=== PATIENT | female | born 1990 ===

== ENCOUNTER 2020-09-26 21:37 | Emergency (ER) | payer MEDICAID ==
--- NOTE | 2020-09-26 21:45 | EDM.PDOCBH ---
ED HPI GENERAL MEDICAL PROBLEM - General Chief Complaint: Drug or Alcohol Abuse Stated Complaint: [facility] Time Seen by Provider: 09/26/20 21:37 Source of Information: Reports: EMS History Limitations: Reports: Altered Mental Status, Intoxication - History of Present Illness INITIAL COMMENTS - FREE TEXT/NARRATIVE: 30-year-old female that apparently was at a local detox center and left AMA, was dropped off at a hotel and tonight was wandering the halls extremely intoxicated falling down. EMS was called, they found a large bottle of vodka partially consumed. She arouses to voice but is unable to speak, vitals are otherwise stable. - Related Data Allergies Allergy/AdvReac Type Severity Reaction Status Date / Time amoxicillin Allergy Cannot Verified 09/26/20 23:57 Remember Penicillins Allergy Cannot Verified 09/26/20 23:57 Remember Sulfa (Sulfonamide Allergy Cannot Verified 09/26/20 23:57 Antibiotics) Remember Home Meds: Home Meds . [Unable to Verify Home Med List] 09/26/20 [History] ED ROS GENERAL - Review of Systems Review Of Systems: See Below Reason Not Obtained: Patient is unable to give a review of systems, intoxicated ED EXAM, BEHAVIORAL HEALTH - Physical Exam Exam: See Below Exam Limited By: Altered Mental Status General Appearance: Lethargic Eye Exam: Bilateral Eye: Other (Slight disconjugate gaze initially) Head: Atraumatic Neck: Non-Tender Respiratory/Chest: Lungs Clear Cardiovascular: Regular Rate, Rhythm Neurological: Inattentive Psychiatric: Other (Initially very intoxicated) Skin Exam: Warm, Dry COURSE, BEHAVIORAL HEALTH COMP - Course Vital Signs: Last Vital Signs Temp 97.8 F 09/26/20 21:50 Pulse 67 09/26/20 22:03 Resp 16 09/26/20 22:03 BP 128/86 09/26/20 22:03 Pulse Ox 99 09/26/20 22:03 Orders, Labs, Meds: Laboratory Tests 09/26/20 09/26/20 09/26/20 Range/Units 21:55 21:55 21:55 WBC 4.7 (4.5-11.0) K/uL RBC 4.40 (3.30-5.50) M/uL Hgb 14.0 (12.0-15.0) g/dL Hct 42.0 (36.0-48.0) % MCV 96 (80-98) fL MCH 32 H (27-31) pg MCHC 33 (32-36) % Plt Count 286 (150-400) K/uL Neut % (Auto) 29 L (36-66) % Lymph % (Auto) 61 H (24-44) % Grayson % (Auto) 10 H (2-6) % Eos % (Auto) 0 L (2-4) % Baso % (Auto) 1 (0-1) % Sodium 140 (140-148) mmol/L Potassium 3.6 (3.6-5.2) mmol/L Chloride 98 L (100-108) mmol/L Carbon Dioxide 26 (21-32) mmol/L Anion Gap 19.6 H (5.0-14.0) mmol/L BUN 10 (7-18) mg/dL Creatinine 0.9 (0.6-1.0) mg/dL Est Cr Clr Drug Dosing 78.93 mL/min Estimated GFR (MDRD) > 60 (>60) Glucose 98 (74-106) mg/dL Calcium 8.4 L (8.5-10.1) mg/dL Ethyl Alcohol 506 mg/dL Medications Discontinued Medications Generic Name Dose Route Start Last Admin Trade Name Freq PRN Reason Stop Dose Admin Multivitamins/Minerals 10 ml/ 1,017.2 mls @ 500 mls/hr 09/26/20 22:30 09/26/20 22:55 Thiamine HCl 100 mg/ Folic IV 500 mls/hr Acid 1 mg/ Magnesium Sulfate 3 ASDIRECTED SHARLA Administration gm/ Sodium Chloride Re-Assessment/Re-Exam: CBC, BMP and EtOH was obtained. EtOH returned 0.506, however the patient was regaining mental alertness rather rapidly. An IV was started and she was initiated a banana bag at 500 cc an hour. Within 1 hour the patient got up and pulled the IV out and wanted to leave. The IV was not restarted. Patient became somewhat uncooperative and threatened to walk away so law enforcement was called and talked to her and she calmed down. Her father was called and he is in route to pick her up. Departure - Departure Time of Disposition: 03:07 Disposition: Home, Self-Care 01 Clinical Impression: Alcohol intoxication Qualifiers: Complication of substance-induced condition: uncomplicated Qualified Code(s): F10.920 - Alcohol use, unspecified with intoxication, uncomplicated - Discharge Information Instructions: Alcohol Intoxication, [id number] Referrals: PCP,None [Primary Care Provider] - Forms: ED Department Discharge Care Plan Goals: It is extremely important that you willingly pursue treatment to get help for your alcoholism before you cause irreversible damage to your body or it kills you or someone else. Sepsis Event Note (ED) - Focused Exam Vital Signs: Vital Signs Temp Pulse Resp BP Pulse Ox 09/26/20 22:03 67 16 128/86 99 09/26/20 21:50 97.8 F 63 15 132/87 100 09/26/20 21:49 97.8 F 63 15 132/87 100
[2020-09-26] MEDS ORDERED: MVI, Adult with Vitamin K 10 ML, Thiamine 100 MG, Folic Acid 1 MG, Magnesium Sulfate 3 ... IV SCH ×5 (22:30)
== END 2020-09-27 03:00 | disposition home or self-care (01) ==
LOC: JP.ED 21:37
DX: F10.120 Alcohol abuse with intoxication, uncomplicated (principal); Y90.8 Blood alcohol level of 240 mg/100 ml or more; Z88.1 Allergy status to other antibiotic agents; Z88.0 Allergy status to penicillin; Z88.2 Allergy status to sulfonamides
CPT/HCPCS: 36415; 80048; 80307; 85025; 96365; 99284; J3411; J3475; J7030; J3490